=== PATIENT | male | born 1980 | race Hispanic/Latino ===

== ENCOUNTER 2021-09-17 12:21 | Emergency (ER) | payer SELFPAY ==
--- NOTE | 2021-09-17 13:56 | RAD REPORT ---
EXAM DESCRIPTION: Adilene Carrera And Lat (2 Views)09/17/2021 1:35 pm CLINICAL HISTORY: Cough COMPARISON: None FINDINGS: Calcified granuloma left lung. The lungs appear clear of acute infiltrate. The heart is normal size IMPRESSION: No acute abnormalities displayed
--- NOTE | 2021-09-17 14:17 | EDPHYS ---
Physician Documentation [facility] Name: Jakob Chaparro III Age: 40 yrs Sex: Male : 1980 Arrival Date: 09/17/2021 Time: 12:23 Bed 24 Private MD: ED Physician Kyler Hodge HPI: 09/17 13:10 This 40 yrs old Male presents to ER via Ambulatory with complaints of Cough, cp Vomiting. 13:10 The patient or guardian reports cough, that is intermittent, with productive sputum, cp that is purulent. Onset: The symptoms/episode began/occurred 10 day(s) ago. 13:10 Severity of symptoms: in the emergency department the symptoms are unchanged, despite cp home interventions. Associated signs and symptoms: Pertinent positives: sore throat, sweats, fatigue, blood in sputum, vomiting from coughing, Pertinent negatives: chest pain, diarrhea, ear ache, fever. Historical: - Allergies: 12:40 No Known Allergies; ss - PMHx: 12:40 Hypertensive disorder; ss - PSHx: 12:40 None; ss - Immunization history:: Client reports receiving the 2nd dose of the Covid vaccine. - Social history:: Smoking status: Reported history of juuling and/or vaping. ROS: 13:15 Constitutional: Positive for body aches, fatigue, sweats, Negative for fever, poor PO cp intake. 13:15 Eyes: Negative for injury, pain, redness, and discharge. cp 13:15 ENT: Positive for sore throat, Negative for drainage from ear(s), ear pain, difficulty swallowing, difficulty handling secretions. 13:15 Cardiovascular: Negative for chest pain, edema, palpitations. 13:15 Respiratory: Positive for cough, hemoptysis. 13:15 Abdomen/GI: Positive for vomiting, Negative for abdominal pain, diarrhea, constipation. 13:15 Neuro: Negative for altered mental status, headache, weakness. 13:15 All other systems are negative. Exam: 13:20 Constitutional: The patient appears in no acute distress, alert, awake, cp non-diaphoretic, non-toxic, well developed, well nourished. 13:20 Head/Face: Normocephalic, atraumatic. cp 13:20 Eyes: Periorbital structures: appear normal, Conjunctiva: normal, no exudate, no injection, Sclera: no appreciated abnormality, Lids and lashes: appear normal, bilaterally. 13:20 ENT: External ear(s): are unremarkable, Ear canal(s): are normal, clear, TM's: dullness, bilaterally, Nose: is normal, Mouth: Lips: moist, Oral mucosa: pink and intact, moist, Posterior pharynx: Airway: no evidence of obstruction, patent, Tonsils: no enlargement, no exudate, swelling, is not appreciated, erythema, that is mild, exudate, is not appreciated, Voice: is normal. 13:20 Neck: ROM/movement: is normal, is supple, without pain, no range of motions limitations, Lymph nodes: no appreciated lymphadenopathy. 13:20 Chest/axilla: Inspection: normal. 13:20 Cardiovascular: Rate: normal, Rhythm: regular. 13:20 Respiratory: the patient does not display signs of respiratory distress, Respirations: normal, no use of accessory muscles, no retractions, labored breathing, is not present, Breath sounds: decreased breath sounds, are not appreciated, stridor, is not appreciated, wheezing: is not appreciated. 13:20 Abdomen/GI: Inspection: abdomen appears normal, Palpation: abdomen is soft and non-tender, in all quadrants. 13:20 Neuro: Orientation: to person, place \\T\\ time. Mentation: is normal. Vital Signs: 12:38 BP 163 / 96; Pulse 71; Resp 17; Temp 97.5; Pulse Ox 98% ; Weight 88.45 kg; Height 5 ft. ss 11 in. (180.34 cm); Pain 9/10; 12:38 Body Mass Index 27.20 (88.45 kg, 180.34 cm) ss MDM: 13:51 Patient medically screened. cp 14:00 Differential Diagnosis: Bronchitis Influenza Pharyngitis Otitis Media Viral Syndrome cp Pneumonia. 14:17 Data reviewed: vital signs, nurses notes. Counseling: I had a detailed discussion with cp the patient and/or guardian regarding: the historical points, exam findings, and any diagnostic results supporting the discharge/admit diagnosis, lab results, radiology results. 14:17 Test interpretation: by ED physician or midlevel provider: ECG. ED course: VSS. Patient cp appears non-toxic and no signs of respiratory distress. Will discharge to home for continued monitoring. 09/17 12:43 Order name: Flu ll1 09/17 12:46 Order name: COVID-19 SARS RT PCR (Document "Date of Onset" if Symptomatic); Complete ld1 Time: 14:16 09/17 12:46 Order name: Influenza Screen (A ; Complete Time: 14:02 EDRI 09/17 14:02 Interpretation: Reviewed. cp 09/17 13:10 Order name: XRAY Chest Pa And Lat (2 Views); Complete Time: 14:02 cp 09/17 14:02 Interpretation: Report reviewed. cp Administered Medications: No medications were administered Disposition: 14:40 Co-signature as Attending Physician, Jeremiah WOMACK. [email or web address] Disposition Summary: 09/17/21 14:17 Discharge Ordered Location: Home cp Problem: new cp Symptoms: have improved cp Condition: Stable cp Diagnosis - Acute bronchitis, unspecified cp Followup: cp - With: Private Physician - When: 2 - 3 days - Reason: Recheck today's complaints Discharge Instructions: - Discharge Summary Sheet cp - Acute Bronchitis, Adult cp Forms: - Work release form ss - Medication Reconciliation Form cp - Thank You Letter cp - Antibiotic Education cp - Prescription Opioid Use cp Prescriptions: - Bromfed DM 2-30-10 mg/5 mL Oral syrup - take 10 milliliter by ORAL route every 6 hours; 200 milliliter; Refills: 0, cp Product Selection Permitted - albuterol sulfate 90 mcg/actuation Inhalation HFA aerosol inhaler - inhale 1 puff by INHALATION route every 4-6 hours; 1 Inhaler; Refills: 0, cp Product Selection Permitted - Zithromax Z-Federico 250 mg Oral Tablet - take 1 tablet by ORAL route as directed for 5 days Day 1 - take two (2) tablets cp one time. Day 2, 3, 4 , 5 take one (1) tablet once daily.; 6 tablet; Refills: 0, Product Selection Permitted Signatures: Dispatcher [facility] Odessa Funes RN RN Jeremiah Farris PA PA cp Kyler Hodge MD MD [email or web address] Corrections: (The following items were deleted from the chart) 13:16 12:44 Chest Single View+[email or web address] ordered. [facility] EDRI 09/18 01:09/17 14:40 Data reviewed: vital signs, nurses notes, [email or web address] 09/18 01:09/17 14:40 Counseling: I had a detailed discussion with the patient and/or guardian cp regarding: the historical points, exam findings, and any diagnostic results supporting the discharge/admit diagnosis, lab results, radiology results, cp
--- NOTE | 2021-09-17 14:17 | ER ---
Nurse's Notes [facility] Name: Jakob Chaparro III Age: 40 yrs Sex: Male : 1980 Arrival Date: 09/17/2021 Time: 12:23 Bed 24 Private MD: Diagnosis: Acute bronchitis, unspecified Presentation: 09/17 12:38 Chief complaint: Patient states: Cough, N/V. body aches, chills for 10 days. + SOB at ss times, notices bright red blood in sputum at times. Coronavirus screen: Vaccine status: Patient reports being unvaccinated. Client denies travel out of the [place] in the last 14 days. congestion, cough unrelated to allergies, fatigue, headache, nausea, vomiting. Client presents with at least one sign or symptom that may indicate coronavirus-19. Standard/surgical mask placed on the client. Ebola Screen: Patient denies travel to an Ebola-affected area in the 21 days before illness onset. Initial Sepsis Screen: Does the patient meet any 2 criteria? No. Patient's initial sepsis screen is negative. Does the patient have a suspected source of infection? Yes: Productive cough/pneumonia. Risk Assessment: Do you want to hurt yourself or someone else? Patient reports no desire to harm self or others. Onset of symptoms was September 07, 2021. 12:38 Method Of Arrival: Ambulatory ss 12:38 Acuity: LUCIEN 3 ss Historical: - Allergies: 12:40 No Known Allergies; ss - PMHx: 12:40 Hypertensive disorder; ss - PSHx: 12:40 None; ss - Immunization history:: Client reports receiving the 2nd dose of the Covid vaccine. - Social history:: Smoking status: Reported history of juuling and/or vaping. Screenin:31 Abuse screen: Denies threats or abuse. Denies injuries from another. Nutritional ss screening: No deficits noted. Tuberculosis screening: Never had TB. Fall Risk None identified. Assessment: 14:31 Reassessment: Patient appears in no apparent distress at this time. Patient and/or ss family updated on plan of care and expected duration. Pain level reassessed. Patient is alert, oriented x 3, equal unlabored respirations, skin warm/dry/pink. Vital Signs: 12:38 BP 163 / 96; Pulse 71; Resp 17; Temp 97.5; Pulse Ox 98% ; Weight 88.45 kg; Height 5 ft. ss 11 in. (180.34 cm); Pain 9/10; 12:38 Body Mass Index 27.20 (88.45 kg, 180.34 cm) ss ED Course: 12:23 Patient arrived in ED. mr 12:25 Jeremiah Paulino PA is PHCP. cp 12:25 Kyler Hodge MD is Attending Physician. cp 12:40 Triage completed. ss 12:41 Arm band placed on. ss 13:37 XRAY Chest Pa And Lat (2 Views) In Process Unspecified. EDMS 14:19 Odessa Funes, RN is Primary Nurse. ss 14:30 No provider procedures requiring assistance completed. Patient did not have IV access ss during this emergency room visit. 14:31 Patient has correct armband on for positive identification. ss Administered Medications: No medications were administered Medication: 14:31 VIS not applicable for this client. ss Outcome: 14:17 Discharge ordered by MD. cp 14:30 Discharged to home ambulatory. ss 14:30 Condition: good 14:30 Discharge instructions given to patient, Instructed on discharge instructions, follow up and referral plans. medication usage, Demonstrated understanding of instructions, follow-up care, medications, Prescriptions given X 3. 14:31 Patient left the ED. ss Signatures: Dispatcher [employer] [facility] Lora Willson mr Odessa Funes, RN RN Jeremiah Paulino PA PA cp
[2021-09-17 14:52] VITALS: BP 163/96; TEMP 97.5; O2SAT 98
== END 2021-09-17 14:31 | disposition home or self-care (01) ==
LOC: ER 12:21
DX: J20.9 Acute bronchitis, unspecified (principal); I10 Essential (primary) hypertension; Z20.822 Contact with and (suspected) exposure to COVID-19
CPT/HCPCS: 71046; 87804; 99283; U0003